=== PATIENT | female | born 1995 | race Two or more races ===

== ENCOUNTER → 2016-10-09 | Outpatient (REF) | payer OTHER | LOC: M SFHCLERA 15:30 | PROVIDERS: ATTEND Nurse Practitioner Family | DX: R30.0 Dysuria (principal) ==

== ENCOUNTER → 2017-02-26 | Outpatient (REF) | payer OTHER | LOC: M SFHCLERA 14:15 | PROVIDERS: ATTEND Nurse Practitioner Family | DX: R39.9 Unspecified symptoms and signs involving the genitourinary system (principal) ==